=== PATIENT | male | born 1980 | race Caucasian/White ===

== ENCOUNTER 2021-08-02 17:46 | Emergency (ER) | payer OTHER, SELFPAY ==
--- NOTE | 2021-08-02 17:56 | ED.EAR ---
HPI - Ear Problem General Chief complaint: Ear Stated complaint: ear pain Source: patient Mode of arrival: ambulatory Limitations: no limitations History of Present Illness HPI Narrative: Patient is a 41-year-old male who presents complaining of right ear pain. Patient reports having left ear pain earlier last week which has resolved. He denies fever, cough, sore throat, rhinorrhea or congestion. He denies significant medical history. He denies taking [id number] medications prior to arrival. MD Complaint: ear pain Related Data Home Medications Medication Instructions Recorded Confirmed adalimumab [Humira Pen] 40 mg SUBCUT DAILY 08/02/21 08/02/21 lisinopril 40 mg PO DAILY 08/02/21 08/02/21 Allergies Allergy/AdvReac Type Severity Reaction Status Date / Time No Known Allergies Allergy Verified 08/02/21 17:50 Review of Systems Review of Systems: CONSTITUTIONAL: Denies fever, chills, or sweats. EYES: Denies visual changes, redness, or discharge. ENT: Reports right otalgia. CARDIOVASCULAR: Denies chest pain, palpitations, or edema. RESPIRATORY: Denies cough or dyspnea. GASTROINTESTINAL: Denies abdominal pain, nausea, vomiting, or diarrhea. GENITOURINARY: Denies dysuria or hematuria. SKIN: Denies rash or itching. MUSCULOSKELETAL: Denies back pain, joint pain, or myalgia. NEUROLOGIC: Denies headache, numbness, dizziness, or weakness. PSYCHIATRIC: Denies anxiety or depression. PMFSH Past Medical History Medical History (Updated 08/02/21 @ 18:20 by GIGI Baer) Bulging disc HTN (hypertension) Psoriasis Psoriatic arthritis Sleep apnea Uveitis Surgical History Surgical History H/O: vasectomy Hx of tonsillectomy [place] teeth removed Social History Social History (Updated 08/02/21 @ 18:01 by GIGI Baer) Smoking status: Never smoker Alcohol intake: current Alcohol use details: Occasional Substance use: never Living arrangements: with family Comments At the time of signature, I have reviewed and agree with nursing past medical, surgical, social, and family history unless otherwise noted. Please see nursing chart for further information. There is no relevant family history pertinent to the presenting complaint. Exam Narrative: GENERAL: Well-appearing, well-nourished, and in no acute distress. HEAD: Normocephalic, atraumatic. EYES: EOMI. No redness or drainage. Conjunctiva are normal. ENT: Mucous membranes pink and moist. Cerumen impaction right ear, partial cerumen impaction left ear, unable to visualize TMs at this time. Throat normal. Uvula midline. NECK: AROM. Supple. No lymphadenopathy. CHEST: No respiratory distress. HEART: Regular rate and rhythm. EXTREMITIES: Normal range of motion. SKIN: Warm, dry, no rash. NEURO: No focal deficits. Alert and oriented x3. Gait steady. PSYCH: Normal affect. No signs of depression or anxiety. Procedures Ear Wax Removal Both Ears: Results: Re-examined: cerumen removed completely TM Examination: TM(s) intact, normal appearance Ear Canal Exam: atraumatic Patient Tolerated Procedure: well Complications: no problems Technique: ear canal irrigated and ear canal curetted Medical Decision Making MDM Narrative Medical decision making narrative: Patient had cerumen impaction removed from right ear at this time. Left ear flushed and irrigated, TMs normal bilaterally, erythema noted in canal. Patient to follow-up with PCP in 3 to 5 days if symptoms persist. Patient agrees with plan of care. Patient is stable for discharge home with outpatient follow-up as needed. Differential Diagnosis Differential Diagnosis: Otitis media, otitis externa, sinusitis, cerumen impaction, foreign body ear Critical Care Time Critical Care Time Critical Care Time: No Discharge Plan Discharge Clinical Impression: Cerumen impaction, Otitis externa
[2021-08-02 18:20] VITALS: BP 139/89; PULSE 73; RESP 18; TEMP 36.6; O2SAT 98
== END 2021-08-02 18:25 | disposition home or self-care (01) ==
PROVIDERS: Emergency Provider Nurse Practitioner
DX: H61.23 Impacted cerumen, bilateral (principal); H60.90 Unspecified otitis externa, unspecified ear; I10 Essential (primary) hypertension; L40.50 Arthropathic psoriasis, unspecified; G47.30 Sleep apnea, unspecified
CPT/HCPCS: 69210; 99213; G0463

== ENCOUNTER 2021-08-26 10:53 | Emergency (ER) | payer OTHER, SELFPAY ==
[2021-08-26 11:03] VITALS: BP 147/90; PULSE 81; RESP 18; TEMP 36.6; O2SAT 98
--- NOTE | 2021-08-26 12:00 | ED.URI ---
HPI - URI/Sore Throat General Chief Complaint: Upper Respiratory Infection Stated Complaint: Chest Congestion,Sore Throat Source: patient Mode of arrival: ambulatory Limitations: no limitations History of Present Illness HPI Narrative: Patient is a 41-year-old male who presents with cough, congestion, body aches and fatigue x7 days. Patient reports initial sore throat which has since resolved. Patient reports symptoms occurred on his trip to [place]. Patient reports Covid vaccinated x2. Reports negative Covid test prior to return from [place]. He denies significant medical history. He reports reports taking multiple [id number] medications with limited relief. MD elicited complaint: cough and nasal congestion Related Data Home Medications Medication Instructions Recorded Confirmed adalimumab [Humira Pen] 40 mg SUBCUT DAILY 08/02/21 08/26/21 lisinopril 40 mg PO DAILY 08/02/21 08/26/21 Allergies Allergy/AdvReac Type Severity Reaction Status Date / Time No Known Allergies Allergy Verified 08/26/21 11:36 Review of Systems Review of Systems: CONSTITUTIONAL: Denies fever, chills, or sweats. EYES: Denies visual changes, redness, or discharge. ENT: Reports congestion CARDIOVASCULAR: Denies chest pain, palpitations, or edema. RESPIRATORY: Reports cough, denies dyspnea GASTROINTESTINAL: Denies abdominal pain, nausea, vomiting, or diarrhea. GENITOURINARY: Denies dysuria or hematuria. SKIN: Denies rash or itching. MUSCULOSKELETAL: Denies back pain, joint pain, or myalgia. NEUROLOGIC: Denies headache, numbness, dizziness, or weakness. PSYCHIATRIC: Denies anxiety or depression. [facility] Past Medical History Medical History Bulging disc HTN (hypertension) Psoriasis Psoriatic arthritis Sleep apnea Uveitis Surgical History Surgical History H/O: vasectomy Hx of tonsillectomy [place] teeth removed Social History Social History Smoking status: Never smoker Alcohol intake: current Alcohol use details: Occasional Substance use: never Comments At the time of signature, I have reviewed and agree with nursing past medical, surgical, social, and family history unless otherwise noted. Please see nursing chart for further information. There is no relevant family history pertinent to the presenting complaint. Exam Narrative: GENERAL: Well-appearing, well-nourished, and in no acute distress. HEAD: Normocephalic, atraumatic. EYES: EOMI. No redness or drainage. Conjunctiva are normal. ENT: Mucous membranes pink and moist. Throat normal. Uvula midline. NECK: AROM. Supple. No lymphadenopathy. CHEST: No respiratory distress. EXTREMITIES: Normal range of motion. No edema. SKIN: Warm, dry, no rash. NEURO: No focal deficits. Alert and oriented x3. Gait steady. PSYCH: Normal affect. No signs of depression or anxiety. Course Vital Signs Vital signs: Vital Signs Temperature 36.6 C 08/26/21 11:03 Pulse Rate 81 08/26/21 11:03 Respiratory Rate 18 08/26/21 11:03 Blood Pressure 147/90 H 08/26/21 11:03 Pulse Oximetry 98 08/26/21 11:03 Temperature 36.6 C 08/26/21 11:03 Pulse Rate 81 08/26/21 11:03 Respiratory Rate 18 08/26/21 11:03 Blood Pressure 147/90 H 08/26/21 11:03 Pulse Oximetry 98 08/26/21 11:03 Reviewed. Patient has been instructed to follow-up with his PCP regarding his blood pressure. MDM - URI/Sore Throat MDM Narrative Medical decision making narrative: Patient has had rapid negative Covid x2, 1 in urgent care at this time. Patient vaccinated for Covid x2. Discussed with patient most likely an upper respiratory infection or potential sinusitis. Discussed continuing [id number] medications, starting Z-Edinson at this time, begin prednisone as directed and taking Tessalon as needed. Patient agrees with pl
== END 2021-08-26 12:15 | disposition home or self-care (01) ==
PROVIDERS: Emergency Provider Nurse Practitioner
DX: J40 Bronchitis, not specified as acute or chronic (principal); J06.9 Acute upper respiratory infection, unspecified; Z20.822 Contact with and (suspected) exposure to COVID-19; I10 Essential (primary) hypertension; L40.50 Arthropathic psoriasis, unspecified; G47.30 Sleep apnea, unspecified; Z98.84 Bariatric surgery status
CPT/HCPCS: 87426; 99213; C9803; G0463

== ENCOUNTER 2023-09-04 13:48 | Outpatient (CLI) | payer OTHER, SELFPAY ==
--- NOTE | ~2023-09-04 | XR_ITS ---
EXAMINATION: XR sacroiliac joints min 3V DATE: 09/04/2023 14:35 INDICATION: Arthropathic psoriasis, unspecified. TECHNIQUE: 3 views of the sacroiliac joints were obtained. COMPARISON: None. FINDINGS: Bone alignment is normal. No fracture. The sacroiliac joints are normal. IMPRESSION: 1. Normal sacroiliac joints. Reviewed, dictated and finalized at location E.
--- NOTE | ~2023-09-04 | XR_ITS ---
EXAMINATION: XR foot LT standing 2V DATE: 09/04/2023 14:34 INDICATION: Arthropathic psoriasis, unspecified. TECHNIQUE: 2 views of left foot standing were obtained. COMPARISON: None. FINDINGS: Pes planus is noted. No fracture. There is mild osteoarthritis of first metatarsophalangeal joint. There is an enthesophyte at plantar aspect of calcaneal tuberosity. IMPRESSION: 1. Mild osteoarthritis of first metatarsophalangeal joint. 2. Pes planus. Reviewed, dictated and finalized at location E.
--- NOTE | ~2023-09-04 | XR_ITS ---
EXAMINATION: XR foot RT standing 2V DATE: 09/04/2023 14:35 INDICATION: Arthropathic psoriasis, unspecified. TECHNIQUE: 2 views of right foot standing were obtained. COMPARISON: None. FINDINGS: Bone alignment is normal. No fracture. There is mild osteoarthritis of first metatarsophala ngeal joint and third distal interphalangeal joint. There is an enthesophyte at posterior aspect of c alcaneal tuberosity. IMPRESSION: 1. Mild polyarticular osteoarthritis. Reviewed, dictated and finalized at location E.
--- NOTE | ~2023-09-04 | XR_ITS ---
EXAMINATION: XR lumbar spine 2-3V DATE: 09/04/2023 14:35 INDICATION: Arthropathic psoriasis, unspecified. TECHNIQUE: 3 views of lumbar spine were obtained. COMPARISON: None. FINDINGS: There is 3 degrees dextrocurvature of thoracolumbar spine. Vertebral body heights are sekou l. There is mildly decreased disc height at L4-L5 and severely decreased disc height at L5-S1. There is multilevel mild facet joint osteoarthritis. IMPRESSION: 1. Severe lower lumbar spondylosis. Reviewed, dictated and finalized at location E.
--- NOTE | ~2023-09-04 | XR_ITS ---
EXAMINATION: XR hand BI arthritis min 3V DATE: 09/04/2023 14:35 INDICATION: Arthropathic psoriasis, unspecified. TECHNIQUE: 4 views of right hand and 4 views of left hand on a total of 7 radiographs were obtained. COMPARISON: None. FINDINGS: RIGHT HAND: Bone alignment is normal. No fracture. There are benign bone islands in lunate. There is mild osteoarthritis of second metacarpophalangeal joint. LEFT HAND: Bone alignment is normal. No fracture. There is mild osteoarthritis of first carpometacarp al joint, second metacarpophalangeal joint, first interphalangeal joint, and third distal interphalan geal joint. IMPRESSION: 1. Mild polyarticular osteoarthritis. No evidence of inflammatory arthropathy. Reviewed, dictated and finalized at location E.
[2023-09-04 14:19] LABS: Hemoglobin 14.6 g/dL (14.0-18.0); Mean Corpuscular HGB Conc 34.8 g/dl (32-36); Mean Corpuscular Hemoglobin 31.3 pg (26-34); Mean Corpuscular Volume 90.1 fl (80-100); Mean Platelet Volume 9.7 fl (7.4-10.4); Platelet Count Result 211 k/mm3 (150-375); Red Blood Count 4.66 M/mm3 (4.6-6.20); Red Cell Distribution Width 11.5 % (11.5-14.5); White Blood Count 3.8 K/mm3 (4.5-10.0)
[2023-09-04 14:31] LABS: Rheumatoid Factor < 12.0 IU/ML (<12)
[2023-09-04 14:33] LABS: Alanine Aminotransferase 60 U/L (6-50); Albumin Level 4.9 g/dL (3.5-5.1); Alkaline Phosphatase 44 U/L (38-126); Anion Gap 8 mmol/L (8-16); Aspartate Amino Transferase 43 U/L (17-59); Bilirubin,Total 2.3 mg/dL (0.2-1.3); Blood Urea Nitrogen 12 mg/dL (9-20); Calcium 9.6 mg/dL (8.4-10.2); Carbon Dioxide 29 mmol/L (22-30); Chloride 99 mmol/L (98-107); Estimated Glomerular Filt Rate > 60; Glucose 92 mg/dL (65-110); Potassium 3.9 mmol/L (3.4-5.0); Sodium 136 mmol/L (137-145)
[2023-09-04 15:50] LABS: Hepatitis B Surface Antigen Negative (Negative)
[2023-09-04 16:07] LABS: Hepatitis B Surface Anti Res Negative; Hepatitis C Virus Antibody Negative (Negative)
[2023-09-06 22:04] LABS: Anti Cyclic Citrullinated Pept <16 Units (<20)
[2023-09-07 12:51] LABS: PNL A Neg Control 0; PNL B Corr Neg Control 0; T SPOT NEG CONTROL Passed; T SPOT POS CONTROL Passed; T Spot TB Result Negative (Negative)
== END 2023-09-04 13:49 | disposition home or self-care (01) ==
LOC: ANHLAB 13:50
PROVIDERS: Visit Provider Internal Medicine
DX: M19.071 Primary osteoarthritis, right ankle and foot (principal); M19.072 Primary osteoarthritis, left ankle and foot; M21.42 Flat foot [pes planus] (acquired), left foot; M43.06 Spondylolysis, lumbar region; M19.042 Primary osteoarthritis, left hand; M19.041 Primary osteoarthritis, right hand; G47.33 Obstructive sleep apnea (adult) (pediatric); M19.90 Unspecified osteoarthritis, unspecified site; L40.9 Psoriasis, unspecified; L40.50 Arthropathic psoriasis, unspecified; Z71.89 Other specified counseling; Z79.899 Other long term (current) drug therapy
CPT/HCPCS: 36415; 72100; 72202; 73130; 73620; 80053; 85027; 86140; 86200; 86430; 86481; 86706; 86803; 87340